=== PATIENT | female | born 1970 | race Caucasian/White ===

== ENCOUNTER 2016-08-23 12:55 | Emergency (ER) | payer OTHER | END 2016-08-23 14:10 | disposition home or self-care (01) | LOC: ER 12:55 | DX: S61.210A Laceration without foreign body of right index finger without damage to nail, initial encounter (principal); S61.011A Laceration without foreign body of right thumb without damage to nail, initial encounter; Z76.5 Malingerer [conscious simulation]; Z88.5 Allergy status to narcotic agent; W45.8XXA Other foreign body or object entering through skin, initial encounter | CPT/HCPCS: 99284 ==